=== PATIENT | female | born 1955 | race American Indian/Alaskan Native ===

== ENCOUNTER 2022-03-13 15:10 | Emergency (ER) | payer MEDICARE, OTHER ==
[~2022-03-13] VITALS: Ht 149.9 cm; Wt 84.0 kg
[~2022-03-13 15:10] MED LIST: ACETAMINOPHEN325 M1 PO; AVAPRO150 MG PO; CYCLOBENZAPRINE5 MG PO; HYDROCHLOROTHIA25 MG PO; IBUPROFEN800 MG PO; MELATONIN3 MG PO; OXYCODON-ACETA1 EAC2 PO; PERCOCET 7.5-31 EACH PO; VITAMIN D5000 UNIT PO
== END 2022-03-13 18:02 | disposition home or self-care (01) ==
LOC: ED 15:10
DX: S27.818A Other injury of esophagus (thoracic part), initial encounter (principal); I10 Essential (primary) hypertension; F17.200 Nicotine dependence, unspecified, uncomplicated; Z88.5 Allergy status to narcotic agent; Z79.899 Other long term (current) drug therapy; X58.XXXA Exposure to other specified factors, initial encounter
CPT/HCPCS: 99282

== ENCOUNTER 2024-10-20 13:47 | Emergency (ER) | payer MEDICARE, OTHER, MEDICAID ==
[~2024-10-20] VITALS: Ht 149.9 cm; Wt 79.2 kg
[2024-10-20] MEDS ORDERED: ACETAMINOPHEN 500 MG TAB PO ONE (14:30)
[2024-10-20] MEDS ORDERED: NAPROXEN 500 MG TAB PO ONE (14:30)
[2024-10-20] MEDS ORDERED: HYDROCODONE/ACETA 5/325 TAB PO ONE (16:15)
[2024-10-20] MEDS ORDERED: HYDROCODONE BIT/ACETAMINOPHEN 5/325 MG 1 TAB HOME.PACK PO ONE (16:15)
[2024-10-20] MEDS ORDERED: HYDROCODON-ACE1 EA10 PO (16:17)
[2024-10-20 16:31] VITALS: BP 123/66
== END 2024-10-20 16:35 | disposition home or self-care (01) ==
LOC: ED 13:47
DX: S22.088A Other fracture of T11-T12 vertebra, initial encounter for closed fracture (principal); W01.0XXA Fall on same level from slipping, tripping and stumbling without subsequent striking against object, initial encounter; I10 Essential (primary) hypertension; F17.200 Nicotine dependence, unspecified, uncomplicated; Z88.5 Allergy status to narcotic agent; Z79.899 Other long term (current) drug therapy
CPT/HCPCS: 72100; 99283; A9270

== ENCOUNTER 2025-02-03 17:28 | Emergency (ER) | payer MEDICARE, OTHER, MEDICAID ==
[~2025-02-03] VITALS: Ht 149.9 cm; Wt 88.0 kg
[~2025-02-03 17:28] MED LIST changes: +HYDROCODON-ACE1 EA10 PO
[2025-02-03 17:57] LABS: BASOPHILS 0.9 % (0-2); EOSINOPHILS 2.3 % (0-6); HEMATOCRIT 36.4 % (35.0-50.0); HEMOGLOBIN 12.9 g/dL (12.0-18.0); LYMPHOCYTES 27.6 % (24-44); MCH 30.5 (27-36); MCHC 35.5 g/dl (30-36); MCV 85.9 fl (81-99); MONOCYTES 8.1 % (0-12); NEUTROPHILS 61.1 % (39-80); PLATELET COUNT 305 K/uL (140-440); RBC 4.24 M/ul (4.3-5.7); RDW 12.4 (10.5-15.0)
[2025-02-03] MEDS ORDERED: DULOXETINE HCL30 MG PO (17:57)
[2025-02-03 18:07] LABS: INR 1.04 (0.80-1.30); PROTIME 12.9 Sec (11.2-14.2)
[2025-02-03 18:12] LABS: ALBUMIN 3.7 g/dL (3.4-5.0); ALBUMIN/GLOBULIN RATIO 1.12 (1.1-2.4); ANION GAP 11.7 (7-21); BILIRUBIN, TOTAL 0.4 mg/dL (0.2-1.0); BUN/CREATININE RATIO 20.43 (6.0-28.6); CALCIUM 9.1 mg/dL (8.5-10.1); CREATININE, SERUM 0.93 mg/dL (0.55-1.02); POTASSIUM 3.7 mmol/L (3.5-5.1)
[2025-02-03 19:20] VITALS: BP 123/60
--- NOTE | 2025-02-03 21:40 | EKG ---
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
== END 2025-02-03 19:21 | disposition home or self-care (01) ==
LOC: ED 17:28
PROVIDERS: Emergency Medicine
DX: Z71.1 Person with feared health complaint in whom no diagnosis is made (principal); I10 Essential (primary) hypertension; F17.200 Nicotine dependence, unspecified, uncomplicated; Z88.5 Allergy status to narcotic agent; Z79.899 Other long term (current) drug therapy
CPT/HCPCS: 70450; 80053; 85025; 85610; 93005; 93010; 99284-25

== ENCOUNTER 2025-07-18 23:10 | Emergency (ER) | payer MEDICARE, OTHER ==
[~2025-07-18] VITALS: Ht 149.9 cm; Wt 80.6 kg
[~2025-07-18 23:10] MED LIST changes: +DULOXETINE HCL30 MG PO
[2025-07-18] MEDS ORDERED: ASPIRIN81 MG PO (23:33)
[2025-07-18] MEDS ORDERED: DIPHTH,PERTUSS(ACELL),TET VAC 0.5 ML SYRINGE IM ONE (23:45)
[2025-07-19] MEDS ORDERED: ACETAMINOPHEN 500 MG TAB PO ONE (00:30)
[2025-07-19] MEDS ORDERED: HYDROCODON-ACE1 EA10 PO (01:23)
[2025-07-19 02:44] VITALS: BP 138/66
[2025-07-19] MEDS ORDERED: HYDROCODONE BIT/ACETAMINOPHEN 5/325 MG 1 TAB HOME.PACK PO ONE (02:45)
== END 2025-07-19 02:47 | disposition home or self-care (01) ==
LOC: ED 23:10
DX: S82.034A Nondisplaced transverse fracture of right patella, initial encounter for closed fracture (principal); S46.912A Strain of unspecified muscle, fascia and tendon at shoulder and upper arm level, left arm, initial encounter; I10 Essential (primary) hypertension; F17.200 Nicotine dependence, unspecified, uncomplicated; Z88.5 Allergy status to narcotic agent; Z79.82 Long term (current) use of aspirin; Z79.899 Other long term (current) drug therapy; W01.0XXA Fall on same level from slipping, tripping and stumbling without subsequent striking against object, initial encounter
CPT/HCPCS: 73030; 73560; 90471; 90715; 99283-25; A9270

== ENCOUNTER 2025-10-20 06:31 | Emergency (ER) | payer MEDICARE, OTHER ==
[~2025-10-20] VITALS: Ht 149.9 cm; Wt 79.5 kg
--- OUTSIDE RECORDS SUMMARY | ~2025-10-20 | XMS | Continuity of Care Document ---
Demographics + + + | Address | [address] | | | [place] [address] | + + + | Preferred Language | Unknown | + + + | Marital Status | | + + + | Mandaeism Affiliation | Unknown | + + + | Race | or | + + + | Ethnic Group | Not or | + + + Author + + + | Author | [facility] | + + + | Organization | [facility] | + + + | Address | [address] | | | [place] [address] | + + + | Phone | | + + + Care Team Providers + + + + | Care Doweler Name | Role | Phone | + + + + Unavailable | Unavailable | + + + + Allergies No information. Encounters No information. Functional Status No information. Immunizations No information. Medications + + + + | date | description | facility | + + + + | (no date) | OXYCODONE | [facility] [place] [facility] [place] | | | HCL/ACETAMINOPHEN | [facility] | + + + + | (no date) | IRBESARTAN | [facility] [place] [facility] [place] | | | | [facility] | + + + + | (no date) | IBUPROFEN | [facility] | | | | [facility] | + + + + | (no date) | MELATONIN | [facility] [place] [facility] [place] | | | | [facility] | + + + + | (no date) | HYDROCHLOROTHIAZIDE | [facility] [place] | | | | [facility] | + + + + | (no date) | ACETAMINOPHEN | [facility] [place] | | | | [facility] | + + + + | (no date) | ASPIRIN | [facility] [place] | | | | [facility] | + + + + | (no date) | CYCLOBENZAPRINE HCL | [facility] [place] | | | | [facility] | + + + + | (no date) | CHOLECALCIFEROL (VITAMIN | [facility] [place] | | | D3) | [facility] | + + + + Problems No information. Procedures No information. Results/Labs No information. Social History +--------+ + + | date | description | facility | +--------+ + + Vital Signs No information."
[~2025-10-20 06:31] MED LIST changes: +ASPIRIN81 MG PO
[2025-10-20] MEDS ORDERED: OXYMETAZOLINE HCL 30 ML BTL NAS ONE (07:15)
[2025-10-20 07:39] LABS: BASOPHILS 0.6 % (0.1-1.2); EOSINOPHILS 2.0 % (0.7-5.8); LYMPHOCYTES 27.9 % (19.3-51.7); MCH 30.8 PG (25.6-32.2); MCHC 34.3 g/dL (32.2-35.5); MCV 89.9 fL (79.4-94.8); MONOCYTES 8.8 % (4.7-12.5); NEUTROPHILS 60.2 % (34.0-71.1); RBC 3.86 M/uL (3.93-5.22)
[2025-10-20 07:59] LABS: ALT (SGPT) 24.0 U/L (14-59); AST (SGOT) 26.0 U/L (15-37); GLOMERULAR FILTRATION RATE,EST 95.0 mL/min (>60); PROTEIN, TOTAL 6.9 g/dL (6.4-8.2); UREA NITROGEN 17.0 mg/dL (7-18)
[2025-10-20 08:17] VITALS: BP 139/81
[2025-11-03] MEDS ORDERED: IBUPROFEN200 M1 PO (13:24)
[2025-11-03] MEDS ORDERED: CYCLOBENZAPRINE5 MG PO (13:27)
[2025-11-03] MEDS ORDERED: ALEVE220 M1 PO (13:28)
== END 2025-10-20 08:15 | disposition home or self-care (01) ==
LOC: ED 06:31
PROVIDERS: Emergency Medicine
DX: R04.0 Epistaxis (principal); I10 Essential (primary) hypertension; F17.200 Nicotine dependence, unspecified, uncomplicated; Z79.82 Long term (current) use of aspirin; Z88.5 Allergy status to narcotic agent
CPT/HCPCS: 36415; 80053; 85025; 99283